=== PATIENT | female | born 1990 | race Caucasian/White ===

== ENCOUNTER 2017-09-07 16:41 | Emergency (ER) | payer OTHER ==
[2017-09-07] MEDS ORDERED: ACETAMINOPHEN TAB 500 MG TAB PO STA (18:07)
[2017-09-07 18:10] VITALS: RESP 18
--- NOTE | 2017-09-07 18:52 | ED ---
General Adult HPI - General Chief complaint: Eye Problems Stated complaint: Blurred Vision Time Seen by Provider: 09/07/17 18:00 Source: patient, RN notes reviewed Mode of arrival: ambulatory Limitations: no limitations - History of Present Illness Initial comments: Chief complaint and history of present illness this a 27-year-old female with a migrainous type headache. It started 2 hours earlier. Mild photophobia mild tingling to the right side of her face. Nausea without vomiting. Patient reports she has similar episode several days ago. Patient also has a history of anxiety. - Related Data Home Medications Medication Instructions Recorded Confirmed ALPRAZolam [Xanax] 0.5 mg PO DAILY PRN 09/07/17 09/07/17 PARoxetine HCL [Paxil] 30 mg PO DAILY 09/07/17 09/07/17 Previous Rx's Medication Instructions Recorded Ondansetron Odt [Zofran Odt] 4 mg PO Q8HR PRN #10 tab 09/07/17 Allergies Allergy/AdvReac Type Severity Reaction Status Date / Time Sulfa (Sulfonamide Allergy Rash/Hives Verified 09/07/17 18:18 Antibiotics) Review of Systems ROS Statement: Those systems with pertinent positive or pertinent negative responses have been documented in the HPI. Review of systems. Currently the headaches minimal. She reports she had mildly blurred vision and numb sensation to the right side of her face. This is associated with a mild headache. This happened also several days ago and spontaneously went away. She also reports a stress and anxiety have been problems in the past for which she takes Paxil. Patient otherwise denying any fever no stiff neck no chest pain shortness breath GI/ problems and at this time no neuro deficits. All systems were reviewed. Past medical problems significant for headache several days ago with similar type. Also anxiety. Patient denies any surgeries. Family history negative for serious medical problems, no cancers no brain aneurysms. The patient denies smoking or drinking. She does have an ALLERGY to sulfa drugs. ROS Other: All systems not noted in ROS Statement are negative. Past Medical History Past Medical History: No Reported History History of Any Multi-Drug Resistant Organisms: None Reported Past Surgical History: No Surgical Hx Reported Past Psychological History: Anxiety Smoking Status: Never smoker Past Alcohol Use History: None Reported Past Drug Use History: None Reported General Exam - General Exam Comments Initial Comments: General: The patient is awake and alert, in no distress, and does not appear acutely ill. Here because she had mild blurred vision and a mild frontal headache with mild nausea and photophobia. Vital signs show temperature 98.8 pulse 106 respiratory rate 20 pulse ox 99% room air blood pressure 135/84. Eye: Pupils are equal, round and reactive to light, extra-ocular movements are intact ; there is normal conjunctiva bilaterally. No signs of icterus. Ears, nose, mouth and throat: There are moist mucous membranes and no oral lesions. Neck: The neck is supple, there is no tenderness or JVD. Cardiovascular: There is a regular rate and rhythm. No murmur, rub or gallop is appreciated. Respiratory: Lungs are clear to auscultation, respirations are non-labored, breath sounds are equal. No wheezes, stridor, rales, or rhonchi. Gastrointestinal: Soft, non-distended, non-tender abdomen without masses or organomegaly noted. There is no rebound or guarding present. No CVA tenderness. Bowel sounds are unremarkable. Back: There is no tenderness to palpation in the midline. There is no obvious deformity. No rashes noted. Musculoskeletal: Normal ROM, no tenderness, There is no pedal edema. There is no calf tenderness or swelling. Sensation intact. Pulses equal bilaterally 2+. Neurological: CN II-XII intact, There are no obvious motor or sensory deficits. Coordination appears grossly intact. Speech is normal. No focal or lateralizing findings. Skin: Skin is warm and dry and no rashes or lesions are noted. Psychiatric: Cooperative, appropriate mood & affect, normal judgment. History of anxiety, takes Paxil. Limitations: no limitations Course Vital Signs 09/07/17 09/07/17 16:43 18:08 Temperature 98.8 F Pulse Rate 106 H 58 L Respiratory 20 18 Rate Blood Pressure 135/84 129/78 O2 Sat by Pulse 99 97 Oximetry Medical Decision Making - Medical Decision Making Medical decision making; this is a 27-year-old female who is coming emergency room with migraine type headache. Mild photophobia, mild numbness and tingling to the right side of her face which subsided after taking Tylenol here and some at home. Patient has similar episode several days ago. The patient is neurologically intact. Urine was negative for test. Patient also has a history of anxiety. Patient was given 1 g of Tylenol here in emergency room. Patient has CT of the brain which was done and reviewed by radiologist his impression is CT of the head is performed without contrast. The ventricles and sulci appear normal. There is no mass effect nor midline shift. There is no sign of intracranial hemorrhage. The calvarium is intact. Impression negative computed tomography scan of the brain. As read by Dr. Batres. Plan the patient will be given prescription for Zofran to be taken for nausea. Advised at the first sign of the beginnings of what appears to be migrainous type headaches with aura to take the Zofran plus and Excedrin. The patient's also advised follow-up with her family physician or return emergency room as needed. - Lab Data Lab Results 09/07/17 Range/Units 18:49 Urine HCG, Qual Not Detected (Not Detectd) Disposition Clinical Impression: Migraine with aura Disposition: HOME SELF-CARE Condition: Fair Instructions: Migraine Headache (ED) Additional Instructions: At the first sign of a headache take Zofran and Excedrin and try to rest in a cool quiet room. Follow-up with family physician return emergency room as needed Prescriptions: Ondansetron Odt [Zofran Odt] 4 mg PO Q8HR PRN #10 tab PRN Reason: Nausea Is patient prescribed a controlled substance at d/c from ED?: No Referrals: Aric Cleary DO [Primary Care Provider] - 1-2 days Time of Disposition: 20:26
--- NOTE | 2017-09-07 19:49 | CT ---
EXAMINATION TYPE: CT brain wo con DATE OF EXAM: 09/07/2017 COMPARISON: NONE HISTORY: Headache and blurred vision. CT DLP: 788.8 mGycm. Automated Exposure Control for Dose Reduction was Utilized. TECHNIQUE: CT scan of the head is performed without contrast. Ventricles and sulci appear normal. There is no mass effect nor midline shift. There is no sign of in tracranial hemorrhage. The calvarium is intact. IMPRESSION: Negative CT scan of the brain.
[2017-09-07 20:26] VITALS: BP 121/69; PULSE 89
[2017-09-07 20:40] VITALS: TEMP 98.4
== END 2017-09-07 20:37 | disposition home or self-care (01) ==
LOC: EC 16:41
DX: G43.109 Migraine with aura, not intractable, without status migrainosus (principal); R20.0 Anesthesia of skin; R20.2 Paresthesia of skin; F41.9 Anxiety disorder, unspecified; Z79.899 Other long term (current) drug therapy; Z88.2 Allergy status to sulfonamides
CPT/HCPCS: 70450; 81025; 99284

== ENCOUNTER → 2017-09-12 | Outpatient (CLI) | payer OTHER ==
--- NOTE | 2017-09-12 17:16 | US ---
EXAMINATION TYPE: US pelvis complete transvag DATE OF EXAM: 09/12/2017 COMPARISON: NONE CLINICAL HISTORY: R10.2 Pelvic pain. TECHNIQUE: . Transabdominal sonographic images of the pelvis were acquired. Transvaginal sonographi c images were medically necessary to better assess the following anatomy: uterus and ovaries Date of LMP: 09/10/2017 EXAM MEASUREMENTS: Uterus: 6 x 3.6 x 4.2 cm Endometrial Stripe: 0.2 cm Right Ovary: 4.0 x 1.7 x 2.0 cm Left Ovary: 3.8 x 1.4 x 2.3 cm 1. Uterus: Retroverted small nabothian cysts 0.3 x 0.4 x0.9 cm, 0.4 x 0.4 x 0.4 cm 2. Endometrium: wnl 3. Right Ovary: follicular cysts 4. Left Ovary: follicular cysts 5. Bilateral Adnexa: wnl 6. Posterior cul-de-sac: wnl IMPRESSION: Negative transabdominal and transvaginal pelvic sonogram.
[2017-09-12 17:41] LABS: HCG,Quantitative Serum <2.4 mIU/mL
== END | disposition home or self-care (01) ==
LOC: RADUSWWP 16:14 → EDUNIT# 16:20
PROVIDERS: ATTEND Obstetrics & Gynecology
DX: R10.2 Pelvic and perineal pain (principal); N91.5 Oligomenorrhea, unspecified
CPT/HCPCS: 36415; 76830; 76856; 83001; 83002; 84146; 84443; 84702

== ENCOUNTER → 2017-11-07 | Outpatient (CLI) | payer OTHER ==
--- NOTE | 2017-11-07 12:28 | EST ---
EXERCISE STRESS DATE OF SERVICE: November 07, 2017 AGE: 27 SEX: F HT: 61" WT: 170 PROTOCOL: Stress Test STAGE: 3 DURATION OF EXERCISE: 7:00 HEART RATE REST: 100 BLOOD PRESSURE REST: 117/77 MAXIMUM HEART RATE ACHIEVED: 165 MAXIMUM BLOOD PRESSURE: 182/48 85% MPHR: 165 100% MPHR: 195 METS: 8.5 INDICATIONS: Chest pain, palpitations. CLINICAL INFORMATION: STRESS DATA: Pretesting physical examination showed heart rate of 100, pressure 117/77 mmHg. Baseline EKG showed sinus mechanism. The patient exercised on the treadmill according to Win protocol for a total of 7 minutes and achieved 8.5 METS. Max heart rate was 165, which is about 85% of maximum predicted heart rate. Maximum blood pressure was 182/48 mmHg. Clinically, the patient did not have any symptoms of chest pain or chest discomfort during the testing or in the recovery. She developed some shortness of breath at peak of heart rate. The EKG did not show any significant ST or T-wave abnormalities concerning for ischemia. CONCLUSION: 1. Good exercise tolerance. 2. Normal EKG in response to exercise. 3. Essentially normal stress test for the patient. MMODL / IJN: [id number] /
== END | disposition home or self-care (01) ==
LOC: RADNMMAIN 10:32
PROVIDERS: ATTEND Family Medicine
DX: R00.2 Palpitations (principal)
CPT/HCPCS: 93017

== ENCOUNTER → 2017-11-13 | Outpatient (CLI) | payer OTHER ==
--- NOTE | 2017-11-22 11:08 | EM ---
EVENT MONITOR Patient was monitored between the November 21 and 2017. The rhythm strip reveals sinus mechanism with episode of sinus tachycardia. There was no evidence of ventricular tachycardia or significant pauses. KAIT / PATRICKN: [id number] /
== END ==
LOC: RADECHMAIN 11:51
PROVIDERS: ATTEND Family Medicine
DX: R00.0 Tachycardia, unspecified (principal)
CPT/HCPCS: 93270; 93271

== ENCOUNTER 2017-12-30 11:27 | Emergency (ER) | payer OTHER ==
[2017-12-30] MEDS ORDERED: SODIUM CHLORIDE 0.9% 1,000 ML IV STA (11:45)
--- NOTE | 2017-12-30 11:47 | ED ---
General Adult HPI - General Chief complaint: Back Pain/Injury Stated complaint: Back/stomach pain Time Seen by Provider: 12/30/17 11:36 Source: patient, RN notes reviewed Mode of arrival: ambulatory Limitations: no limitations - History of Present Illness Initial comments: Patient 27-year-old female presented to the emergency room today with a chief complaint of left-sided back pain over the last week. She states that she's had pain in the left side of the back at all ache. She states she was worried about possible urinary tract infection. She states with this patient's also had some pain up between her shoulders and some chest pain. She states that she 's also had some achiness to her neck as well. She states all the symptoms were present over the past week but they seem to be getting worse. She did go to the family doctor was started on antibiotics cover for a urinary tract infection on ciprofloxacin but states that these symptoms are not improving and everything seems to be increasing. Patient denies any other complaints currently. Patient denies any recent fever, chills, nausea or vomiting, numbness or tingling, dysuria or hematuria, constipation or diarrhea, headaches or visual changes, or any other complaints. - Related Data Home Medications Medication Instructions Recorded Confirmed ALPRAZolam [Xanax] 0.5 mg PO DAILY PRN 09/07/17 09/07/17 PARoxetine HCL [Paxil] 30 mg PO DAILY 09/07/17 09/07/17 Previous Rx's Medication Instructions Recorded Ondansetron Odt [Zofran Odt] 4 mg PO Q8HR PRN #10 tab 09/07/17 Allergies Allergy/AdvReac Type Severity Reaction Status Date / Time Sulfa (Sulfonamide Allergy Rash/Hives Verified 12/30/17 11:34 Antibiotics) Review of Systems ROS Statement: Those systems with pertinent positive or pertinent negative responses have been documented in the HPI. ROS Other: All systems not noted in ROS Statement are negative. Past Medical History Past Medical History: No Reported History History of Any Multi-Drug Resistant Organisms: None Reported Past Surgical History: No Surgical Hx Reported Past Psychological History: Anxiety, Depression Smoking Status: Never smoker Past Alcohol Use History: None Reported Past Drug Use History: None Reported General Exam - General Exam Comments Initial Comments: General: The patient is awake and alert, in no distress, and does not appear acutely ill. Eye: Pupils are equal, round and reactive to light. Extra-ocular movements are intact. No nystagmus. There is normal conjunctiva bilaterally. No signs of icterus. Ears, nose, mouth and throat: There are moist mucous membranes and no oral lesions. Neck: The neck is supple, there is no tenderness or JVD. Cardiovascular: There is a regular rate and rhythm. No murmur, rub or gallop is appreciated. Respiratory: Lungs are clear to auscultation, respirations are non-labored, breath sounds are equal. No wheezes, stridor, rales, or rhonchi. Gastrointestinal: Soft, non-distended, non-tender abdomen without masses or organomegaly noted. There is no rebound or guarding present. No CVA tenderness. Musculoskeletal: Normal ROM, no tenderness. Sensation intact. Strength 5/5. Pulses equal bilaterally 2+. Neurological: A&O x 3. CN II-XII intact, There are no obvious motor or sensory deficits. Coordination appears grossly intact. Speech is normal. Skin: Skin is warm and dry and no rashes or lesions are noted. Psychiatric: Cooperative, appropriate mood & affect, normal judgment. Limitations: no limitations Course Vital Signs 12/30/17 11:31 Temperature 98.1 F Pulse Rate 79 Respiratory 20 Rate Blood Pressure 108/67 O2 Sat by Pulse 99 Oximetry EKG Findings - EKG Comments: EKG Findings:: EKG performed at 1150: Shows normal sinus rhythm at 80 bpm. OH interval is 172. QRS 86. QT/QTc is 368/424. No acute ST changes. Medical Decision Making - Medical Decision Making Patient reexamined at this time shows no signs of distress is resting comfortably. Her labs been reviewed. Patient's urinalysis shows no sign of infection. Patient currently on antibiotics of Cipro Floxin. Patient's EKG showed a normal sinus rhythm. Chest x-rays unremarkable. Patient's is no tachycardia. Is not on any control. No recent travel. Patient's doing well. Vitals are stable will be discharged home advised follow-up the family doctor over the next 2 days. - Lab Data Result diagrams: 12/30/17 12:10 12/30/17 12:10 Lab Results 12/30/17 12/30/17 12/30/17 Range/Units 12:10 12:10 12:10 WBC 7.4 (3.8-10.6) k/uL RBC 4.38 (3.80-5.40) m/uL Hgb 13.9 (11.4-16.0) gm/dL Hct 39.3 (34.0-46.0) % MCV 89.9 (80.0-100.0) fL MCH 31.7 (25.0-35.0) pg MCHC 35.3 (31.0-37.0) g/dL RDW 12.4 (11.5-15.5) % Plt Count 288 (150-450) k/uL Neutrophils % 71 % Lymphocytes % 19 % Monocytes % 6 % Eosinophils % 2 % Basophils % 0 % Neutrophils # 5.3 (1.3-7.7) k/uL Lymphocytes # 1.4 (1.0-4.8) k/uL Monocytes # 0.5 (0-1.0) k/uL Eosinophils # 0.1 (0-0.7) k/uL Basophils # 0.0 (0-0.2) k/uL Sodium 139 (137-145) mmol/L Potassium 4.2 (3.5-5.1) mmol/L Chloride 107 (98-107) mmol/L Carbon Dioxide 22 (22-30) mmol/L Anion Gap 10 mmol/L BUN 13 (7-17) mg/dL Creatinine 0.59 (0.52-1.04) mg/dL Est GFR (CKD-EPI)AfAm >90 (>60 ml/min/1.73 sqM) Est GFR (CKD-EPI)NonAf >90 (>60 ml/min/1.73 sqM) Glucose 92 (74-99) mg/dL Calcium 9.4 (8.4-10.2) mg/dL Total Bilirubin 0.7 (0.2-1.3) mg/dL AST 25 (14-36) U/L ALT 28 (9-52) U/L Alkaline Phosphatase 89 (38-126) U/L Total Creatine Kinase 39 (30-135) U/L CK-MB (CK-2) <0.2 (0.0-2.4) ng/mL CK-MB (CK-2) Rel Index Troponin I <0.012 (0.000-0.034) ng/mL Total Protein 7.6 (6.3-8.2) g/dL Albumin 4.3 (3.5-5.0) g/dL Urine Color Urine Appearance (Clear) Urine pH (5.0-8.0) Ur Specific [place] (1.001-1.035) Urine Protein (Negative) Urine Glucose (UA) (Negative) Urine Ketones (Negative) Urine Blood (Negative) Urine Nitrite (Negative) Urine Bilirubin (Negative) Urine Urobilinogen (<2.0) mg/dL Ur Leukocyte Esterase (Negative) Urine RBC (0-5) /hpf Ur Squamous Epith Cells (0-4) /hpf Urine Bacteria (None) /hpf Urine Mucus (None) /hpf Urine HCG, Qual (Not Detectd) 12/30/17 12/30/17 Range/Units 12:10 12:10 WBC (3.8-10.6) k/uL RBC (3.80-5.40) m/uL Hgb (11.4-16.0) gm/dL Hct (34.0-46.0) % MCV (80.0-100.0) fL MCH (25.0-35.0) pg MCHC (31.0-37.0) g/dL RDW (11.5-15.5) % Plt Count (150-450) k/uL Neutrophils % % Lymphocytes % % Monocytes % % Eosinophils % % Basophils % % Neutrophils # (1.3-7.7) k/uL Lymphocytes # (1.0-4.8) k/uL Monocytes # (0-1.0) k/uL Eosinophils # (0-0.7) k/uL Basophils # (0-0.2) k/uL Sodium (137-145) mmol/L Potassium (3.5-5.1) mmol/L Chloride (98-107) mmol/L Carbon Dioxide (22-30) mmol/L Anion Gap mmol/L BUN (7-17) mg/dL Creatinine (0.52-1.04) mg/dL Est GFR (CKD-EPI)AfAm (>60 ml/min/1.73 sqM) Est GFR (CKD-EPI)NonAf (>60 ml/min/1.73 sqM) Glucose (74-99) mg/dL Calcium (8.4-10.2) mg/dL Total Bilirubin (0.2-1.3) mg/dL AST (14-36) U/L ALT (9-52) U/L Alkaline Phosphatase (38-126) U/L Total Creatine Kinase (30-135) U/L CK-MB (CK-2) (0.0-2.4) ng/mL CK-MB (CK-2) Rel Index Troponin I (0.000-0.034) ng/mL Total Protein (6.3-8.2) g/dL Albumin (3.5-5.0) g/dL Urine Color Yellow Urine Appearance Cloudy H (Clear) Urine pH 7.0 (5.0-8.0) Ur Specific [place] 1.018 (1.001-1.035) Urine Protein Trace H (Negative) Urine Glucose (UA) Negative (Negative) Urine Ketones Negative (Negative) Urine Blood Negative (Negative) Urine Nitrite Negative (Negative) Urine Bilirubin Negative (Negative) Urine Urobilinogen <2.0 (<2.0) mg/dL Ur Leukocyte Esterase Large H (Negative) Urine RBC 3 (0-5) /hpf Ur Squamous Epith Cells 42 H (0-4) /hpf Urine Bacteria Few H (None) /hpf Urine Mucus Rare H (None) /hpf Urine HCG, Qual Not Detected (Not Detectd) Disposition Clinical Impression: Flank pain Disposition: HOME SELF-CARE Condition: Good Instructions: Flank Pain (ED) Additional Instructions: Please use medication as discussed. Please follow-up with family doctor in the next 2 days of symptoms have not improved. Please return to emergency room if the symptoms increase or worsen or for any other concerns. Is patient prescribed a controlled substance at d/c from ED?: No Referrals: Aric Cleary DO [Primary Care Provider] - 1-2 days Time of Disposition: 13:48
[2017-12-30 12:24] LABS: Basophils % (A) 0 %; Eosinophils # (A) 0.1 k/uL (0-0.7); Eosinophils % (A) 2 %; HCT 39.3 % (34.0-46.0); HGB 13.9 gm/dL (11.4-16.0); Lymphocytes # (A) 1.4 k/uL (1.0-4.8); Lymphocytes % (A) 19 %; MCH 31.7 pg (25.0-35.0); MCHC 35.3 g/dL (31.0-37.0); MCV 89.9 fL (80.0-100.0); Mean Platelet Volume 6.7; Monocytes # (A) 0.5 k/uL (0-1.0); Monocytes % (A) 6 %; Neutrophils # (A) 5.3 k/uL (1.3-7.7); Neutrophils % (A) 71 %; Platelet Count 288 k/uL (150-450); RBC 4.38 m/uL (3.80-5.40); RDW 12.4 % (11.5-15.5); WBC 7.4 k/uL (3.8-10.6)
[2017-12-30 12:27] LABS: Appearance,Urine Cloudy (Clear); Bacteria,Urine Few /hpf; Bilirubin,Urine Negative (Negative); Blood,Urine Negative (Negative); Color,Urine Yellow; Glucose,Urine (UA) Negative (Negative); Ketones,Urine Negative (Negative); Leukocyte Esterase,Urine Large (Negative); Mucus,Urine Rare /hpf; Nitrite,Urine Negative (Negative); Protein,Urine Trace (Negative); RBC,Urine 3 /hpf (0-5); Specific Gravity,Urine 1.018 (1.001-1.035); Squamous Epithelial Cell,Urine 42 /hpf (0-4); Urobilinogen,Urine <2.0 mg/dL (<2.0)
[2017-12-30 12:36] LABS: ALT 28 U/L (9-52); AST 25 U/L (14-36); Albumin 4.3 g/dL (3.5-5.0); Alkaline Phosphatase 89 U/L (38-126); Anion Gap 10 mmol/L; Blood Urea Nitrogen 13 mg/dL (7-17); Calcium 9.4 mg/dL (8.4-10.2); Carbon Dioxide 22 mmol/L (22-30); Chloride 107 mmol/L (98-107); Glucose 92 mg/dL (74-99); Potassium 4.2 mmol/L (3.5-5.1); Sodium 139 mmol/L (137-145); Total Bilirubin 0.7 mg/dL (0.2-1.3); Total Protein 7.6 g/dL (6.3-8.2)
[2017-12-30 13:09] LABS: Creatine Kinase 39 U/L (30-135)
--- NOTE | 2017-12-30 13:09 | XR ---
EXAMINATION TYPE: XR KUB , 2 VIEWS DATE OF EXAM ORDERED: 12/30/2017 HISTORY: pain. COMPARISON: None. FINDINGS: The abdominal gas pattern is within normal limits. There is no evidence of obstruction or free air. There is a moderate amount of stool present on the right. No unusual calcifications are see n. IMPRESSION: 1. NO ACUTE INTRA-ABDOMINAL ABNORMALITY. 2. CORRELATE FOR CONSTIPATION.
--- NOTE | 2017-12-30 13:10 | XR ---
EXAMINATION TYPE: XR chest 2V DATE OF EXAM: 12/30/2017 HISTORY: pain. REFERENCE: NONE. FINDINGS: The lungs are clear. Pleural spaces are clear. The heart is not enlarged. IMPRESSION: NO ACTIVE INTRATHORACIC DISEASE.
[2017-12-30 13:20] LABS: Creatine Kinase MB <0.2 ng/mL (0.0-2.4); Troponin I <0.012 ng/mL (0.000-0.034)
[2017-12-30 14:00] VITALS: BP 109/63; PULSE 77; RESP 18; TEMP 98.5
== END 2017-12-30 13:55 | disposition home or self-care (01) ==
LOC: EC 11:27
DX: R10.9 Unspecified abdominal pain (principal); M54.9 Dorsalgia, unspecified; R07.9 Chest pain, unspecified; F41.9 Anxiety disorder, unspecified; F32.9 Major depressive disorder, single episode, unspecified; Z32.02 Encounter for pregnancy test, result negative; Z79.899 Other long term (current) drug therapy; Z88.2 Allergy status to sulfonamides
CPT/HCPCS: 36415; 71046; 74018; 80053; 81001; 81025; 82550; 82553; 84484; 85025; 87086; 93005; 96360; 99284

== ENCOUNTER 2018-01-17 03:10 | Emergency (ER) | payer OTHER ==
[2018-01-17 03:17] VITALS: RESP 18
--- NOTE | 2018-01-17 03:29 | ED ---
General Adult HPI - General Source: patient, RN notes reviewed Mode of arrival: wheelchair Limitations: no limitations <Felipe Campos P - Last Filed: 01/17/18 03:55> <Sammie Matos P - Last Filed: 01/17/18 04:54> - General Chief complaint: Dizziness Stated complaint: MIGRAINE,DIZZINESS Time Seen by Provider: 01/17/18 03:20 - History of Present Illness Initial comments: 27-year-old female with a past medical history of migraines and anxiety presents to the emergency department for a chief complaint of headache and dizziness 5 days. Patient states she was diagnosed with migraines a few months ago and has had a CAT scan in the past. Patient states that 5 days ago she started to experience aura such as decreased vision. Patient states this is consistent with past migraines. Patient also has blurry vision and dizziness which is consistent with past symptoms of migraines. Patient also admits to nausea but denies vomiting. However patient states this is lasting longer than her normal migraines. Patient also admits to increased anxiety lately and states this could be attributing. Patient states her boyfriend also similar symptoms and they are concerned for carbon monoxide poisoning. Patient has no other complaints at this time including shortness of breath, chest pain, abdominal pain, or fevers. (Felipe Campos) - Related Data Home Medications Medication Instructions Recorded Confirmed ALPRAZolam [Xanax] 0.5 mg PO DAILY PRN 09/07/17 01/17/18 PARoxetine HCL [Paxil] 30 mg PO DAILY 09/07/17 01/17/18 Nadolol [Corgard] 20 mg PO DAILY 01/17/18 01/17/18 Previous Rx's Medication Instructions Recorded Ondansetron Odt [Zofran Odt] 4 mg PO Q8HR PRN #10 tab 09/07/17 Allergies Allergy/AdvReac Type Severity Reaction Status Date / Time Sulfa (Sulfonamide Allergy Rash/Hives Verified 01/17/18 03:17 Antibiotics) Review of Systems ROS Other: All systems not noted in ROS Statement are negative. <Felipe Campos - Last Filed: 01/17/18 03:55> ROS Other: All systems not noted in ROS Statement are negative. <Sammie Matos P - Last Filed: 01/17/18 04:54> ROS Statement: Those systems with pertinent positive or pertinent negative responses have been documented in the HPI. Past Medical History Past Medical History: No Reported History Additional Past Medical History / Comment(s): migraines, tachycardia, History of Any Multi-Drug Resistant Organisms: None Reported Past Surgical History: No Surgical Hx Reported Past Psychological History: Anxiety, Depression Smoking Status: Never smoker Past Alcohol Use History: None Reported Past Drug Use History: None Reported <Felipe Campos P - Last Filed: 01/17/18 03:55> General Exam Limitations: no limitations General appearance: alert, in no apparent distress Head exam: Present: atraumatic, normocephalic, normal inspection Eye exam: Present: normal appearance, PERRL, EOMI. Absent: scleral icterus, conjunctival injection, nystagmus, periorbital swelling ENT exam: Present: normal exam, normal oropharynx, mucous membranes moist, TM's normal bilaterally, normal external ear exam Neck exam: Present: normal inspection, full ROM. Absent: tenderness, meningismus, lymphadenopathy Respiratory exam: Present: normal lung sounds bilaterally. Absent: respiratory distress, wheezes, rales, rhonchi, stridor Cardiovascular Exam: Present: regular rate, normal rhythm, normal heart sounds. Absent: systolic murmur, diastolic murmur, rubs, gallop, clicks Neurological exam: Present: alert, oriented X3, CN II-XII intact Psychiatric exam: Present: normal affect, normal mood <Felipe Campos P - Last Filed: 01/17/18 03:55> Vital Signs 01/17/18 03:14 Temperature 98.4 F Pulse Rate 80 Respiratory 18 Rate Blood Pressure 119/82 O2 Sat by Pulse 95 Oximetry EKG Findings - EKG Comments: EKG Findings:: Normal sinus rhythm, ventricular rate 77, [place] interval 152, no evidence of ST elevation or depression. <Felipe Campos P - Last Filed: 01/17/18 03:55> Medical Decision Making <Felipe Campos P - Last Filed: 01/17/18 03:55> - Lab Data Result diagrams: 01/17/18 03:40 01/17/18 03:40 <Sammie Matos P - Last Filed: 01/17/18 04:54> - Medical Decision Making 27-year-old female presents to the emergency department for a chief complaint of migraine 5 days. Patient also has associated dizziness, nausea, and blurry vision which is consistent with past symptoms of migraines. Symptoms were preceded by an aura of decreased vision. Patient and boyfriend are also concern for carbon monoxide as patient's boyfriend has had similar symptoms today. On exam no focal neuro deficits. Patient is well-appearing. Patient does appear upset when speaking about increasing recent anxiety and states this could be playing a role in her headache. CBC CMP and Carbon monoxide ordered. Care handed to off to Dr Matos at 0400. (Felipe Campos) She care was signed out to me by Felipe, patient presented with intermittent headache and concern for carbon monoxide exposure. Labs were unremarkable. Carboxyhemoglobin was mildly elevated with the patient is a cigarette smoker. This is not a concerning level. I reevaluated the patient who states she is feeling better at though somewhat anxious. I advised her of her normal lab findings. She reports her headache is improved with Toradol. At this time the patient is stable for discharge home. Return parameters were discussed and the patient was discharged home in stable condition. (Sammie Matos) - Lab Data Lab Results 01/17/18 01/17/18 01/17/18 Range/Units 03:40 03:40 03:40 WBC 9.2 (3.8-10.6) k/uL RBC 4.34 (3.80-5.40) m/uL Hgb 13.5 (11.4-16.0) gm/dL Hct 40.0 (34.0-46.0) % MCV 92.1 (80.0-100.0) fL MCH 31.2 (25.0-35.0) pg MCHC 33.9 (31.0-37.0) g/dL RDW 12.3 (11.5-15.5) % Plt Count 327 (150-450) k/uL Neutrophils % 86 % Lymphocytes % 10 % Monocytes % 3 % Eosinophils % 1 % Basophils % 0 % Neutrophils # 7.9 H (1.3-7.7) k/uL Lymphocytes # 0.9 L (1.0-4.8) k/uL Monocytes # 0.3 (0-1.0) k/uL Eosinophils # 0.1 (0-0.7) k/uL Basophils # 0.0 (0-0.2) k/uL Carbon Monoxide, Quant 3.0 (<10.0) % Sodium 141 (137-145) mmol/L Potassium 4.4 (3.5-5.1) mmol/L Chloride 108 H (98-107) mmol/L Carbon Dioxide 24 (22-30) mmol/L Anion Gap 9 mmol/L BUN 14 (7-17) mg/dL Creatinine 0.65 (0.52-1.04) mg/dL Est GFR (CKD-EPI)AfAm >90 (>60 ml/min/1.73 sqM) Est GFR (CKD-EPI)NonAf >90 (>60 ml/min/1.73 sqM) Glucose 164 H (74-99) mg/dL Calcium 10.1 (8.4-10.2) mg/dL Disposition <Felipe Campos P - Last Filed: 01/17/18 03:55> Is patient prescribed a controlled substance at d/c from ED?: No <Sammie Matos P - Last Filed: 01/17/18 04:54> Clinical Impression: Headache Disposition: HOME SELF-CARE Condition: Good Instructions: Dizziness (ED) Referrals: Aric Cleary DO [Primary Care Provider] - 1-2 days
[2018-01-17] MEDS ORDERED: KETOROLAC 30 MG/ML 1 ML VIAL IM STA (03:38)
[2018-01-17] MEDS ORDERED: ONDANSETRON 4 MG/2 ML VIAL IVP STA (03:38)
[2018-01-17] MEDS ORDERED: SODIUM CHLORIDE 0.9% 1,000 ML IV STA (03:39)
[2018-01-17 03:54] LABS: Basophils % (A) 0 %; Eosinophils # (A) 0.1 k/uL (0-0.7); Eosinophils % (A) 1 %; HGB 13.5 gm/dL (11.4-16.0); Lymphocytes # (A) 0.9 k/uL (1.0-4.8); Lymphocytes % (A) 10 %; MCH 31.2 pg (25.0-35.0); MCHC 33.9 g/dL (31.0-37.0); MCV 92.1 fL (80.0-100.0); Mean Platelet Volume 6.8; Monocytes # (A) 0.3 k/uL (0-1.0); Monocytes % (A) 3 %; Neutrophils # (A) 7.9 k/uL (1.3-7.7); Neutrophils % (A) 86 %; Platelet Count 327 k/uL (150-450); RBC 4.34 m/uL (3.80-5.40); RDW 12.3 % (11.5-15.5); WBC 9.2 k/uL (3.8-10.6)
[2018-01-17] MEDS ORDERED: KETOROLAC 30 MG/ML 1 ML VIAL IVP STA (03:54)
[2018-01-17 04:08] LABS: Anion Gap 9 mmol/L; Blood Urea Nitrogen 14 mg/dL (7-17); Calcium 10.1 mg/dL (8.4-10.2); Carbon Dioxide 24 mmol/L (22-30); Chloride 108 mmol/L (98-107); Glucose 164 mg/dL (74-99); Potassium 4.4 mmol/L (3.5-5.1); Sodium 141 mmol/L (137-145)
[2018-01-17 06:02] VITALS: BP 122/78; PULSE 74; TEMP 98.1
== END 2018-01-17 04:58 | disposition home or self-care (01) ==
LOC: EC 03:10
DX: G43.909 Migraine, unspecified, not intractable, without status migrainosus (principal); F41.9 Anxiety disorder, unspecified; F32.9 Major depressive disorder, single episode, unspecified; Z79.899 Other long term (current) drug therapy; Z88.2 Allergy status to sulfonamides
CPT/HCPCS: 36415; 93005; 80048; 82375; 85025; 99284; 96374; 96375; 96361; J2405; J1885

== ENCOUNTER 2020-05-17 16:48 | Emergency (ER) | payer OTHER ==
[2020-05-17 16:51] VITALS: RESP 18
[2020-05-17] MEDS ORDERED: SODIUM CHLORIDE 0.9% 1,000 ML IV STA (17:12)
[2020-05-17] MEDS ORDERED: PANTOPRAZOLE 40 MG/10 ML VIAL IVP STA (17:12)
[2020-05-17] MEDS ORDERED: ONDANSETRON 4 MG/2 ML VIAL IVP STA (17:12)
[2020-05-17] MEDS ORDERED: KETOROLAC 15 MG/ML 1 ML VIAL IVP STA (17:12)
[2020-05-17 17:28] LABS: Basophils # (A) 0.1 k/uL (0-0.2); Basophils % (A) 1 %; Eosinophils # (A) 0.2 k/uL (0-0.7); Eosinophils % (A) 2 %; HCT 44.9 % (34.0-46.0); HGB 15.2 gm/dL (11.4-16.0); Lymphocytes # (A) 2.2 k/uL (1.0-4.8); Lymphocytes % (A) 22 %; MCH 31.3 pg (25.0-35.0); MCHC 33.9 g/dL (31.0-37.0); MCV 92.4 fL (80.0-100.0); Mean Platelet Volume 7.2; Monocytes # (A) 0.5 k/uL (0-1.0); Monocytes % (A) 5 %; Neutrophils # (A) 6.9 k/uL (1.3-7.7); Neutrophils % (A) 70 %; Platelet Count 333 k/uL (150-450); RBC 4.86 m/uL (3.80-5.40); RDW 12.2 % (11.5-15.5); WBC 9.9 k/uL (3.8-10.6)
[2020-05-17 17:30] LABS: Appearance,Urine Clear (Clear); Bilirubin,Urine Negative (Negative); Blood,Urine Negative (Negative); Color,Urine Yellow; Glucose,Urine (UA) Negative (Negative); Ketones,Urine Negative (Negative); Leukocyte Esterase,Urine Trace (Negative); Mucus,Urine Occasional /hpf; Nitrite,Urine Negative (Negative); PH, Urine 5.5 (5.0-8.0); Protein,Urine Negative (Negative); RBC,Urine 1 /hpf (0-5); Specific Gravity,Urine 1.026 (1.001-1.035); Squamous Epithelial Cell,Urine 5 /hpf (0-4); Urobilinogen,Urine <2.0 mg/dL (<2.0); WBC,Urine 2 /hpf (0-5)
[2020-05-17 17:38] LABS: ALT 19 U/L (4-34); AST 21 U/L (14-36); African American GFR (CKD) >90 (>60 ml/min/1.73 sqM); Albumin 4.6 g/dL (3.5-5.0); Alkaline Phosphatase 102 U/L (38-126); Amylase 57 U/L (30-110); Anion Gap 11 mmol/L; Blood Urea Nitrogen 12 mg/dL (7-17); Calcium 9.7 mg/dL (8.4-10.2); Carbon Dioxide 24 mmol/L (22-30); Chloride 105 mmol/L (98-107); Glucose 102 mg/dL (74-99); Lipase 88 U/L (23-300); Non-African American GFR(CKD) >90 (>60 ml/min/1.73 sqM); Potassium 4.1 mmol/L (3.5-5.1); Sodium 140 mmol/L (137-145); Total Bilirubin 0.4 mg/dL (0.2-1.3); Total Protein 8.1 g/dL (6.3-8.2)
--- NOTE | 2020-05-17 18:14 | ED ---
Abdominal Pain HPI - General Chief Complaint: Abdominal Pain Stated Complaint: abd pain Time Seen by Provider: 05/17/20 16:54 Source: patient, RN notes reviewed, old records reviewed Mode of arrival: ambulatory Limitations: no limitations - History of Present Illness Initial Comments: This patient's a 21-year-old female who presents emergency today with months of epigastric and sub-diaphragmatic abdominal pain. She complains of some nausea and burning sensation related to pain. She does report strong family history of gallbladder problems. Patient reports she has noticed maybe a foul-smelling odor smell to her urine. She denies specific lower abdominal pain. She denies any fevers or chills. - Related Data Home Medications Medication Instructions Recorded Confirmed ALPRAZolam [Xanax] 0.5 mg PO DAILY PRN 09/07/17 01/17/18 PARoxetine HCL [Paxil] 30 mg PO DAILY 09/07/17 01/17/18 nadoloL [Corgard] 20 mg PO DAILY 01/17/18 01/17/18 Previous Rx's Medication Instructions Recorded Ondansetron Odt [Zofran Odt] 4 mg PO Q8HR PRN #10 tab 09/07/17 Ondansetron Odt [Zofran Odt] 4 mg PO Q8HR PRN #12 tab 05/17/20 Pantoprazole [Protonix] 40 mg PO DAILY #20 tablet. 05/17/20 Allergies Allergy/AdvReac Type Severity Reaction Status Date / Time Sulfa (Sulfonamide Allergy Rash/Hives Verified 05/17/20 16:51 Antibiotics) Review of Systems ROS Statement: Those systems with pertinent positive or pertinent negative responses have been documented in the HPI. ROS Other: All systems not noted in ROS Statement are negative. Past Medical History Past Medical History: No Reported History Additional Past Medical History / Comment(s): migraines, tachycardia, History of Any Multi-Drug Resistant Organisms: None Reported Past Surgical History: No Surgical Hx Reported Past Psychological History: Anxiety, Depression Smoking Status: Never smoker Past Alcohol Use History: None Reported Past Drug Use History: None Reported General Exam - General Exam Comments Initial Comments: 21-year-old female. Alert and oriented. No distress. Limitations: no limitations General appearance: alert, in no apparent distress Head exam: Present: atraumatic, normocephalic, normal inspection Eye exam: Present: normal appearance, PERRL, EOMI. Absent: scleral icterus, conjunctival injection, periorbital swelling ENT exam: Present: normal exam, mucous membranes moist Neck exam: Present: normal inspection. Absent: tenderness, meningismus, lymphadenopathy Respiratory exam: Present: normal lung sounds bilaterally. Absent: respiratory distress, wheezes, rales, rhonchi, stridor Cardiovascular Exam: Present: regular rate, normal rhythm, normal heart sounds. Absent: systolic murmur, diastolic murmur, rubs, gallop, clicks GI/Abdominal exam: Present: soft, tenderness (Epigastric tenderness ), normal bowel sounds. Absent: distended, guarding, rebound, rigid Extremities exam: Present: normal inspection, full ROM, normal capillary refill. Absent: tenderness, pedal edema, joint swelling, calf tenderness Back exam: Present: normal inspection Neurological exam: Present: alert, oriented X3, CN II-XII intact Psychiatric exam: Present: normal affect, normal mood Skin exam: Present: warm, dry, intact, normal color. Absent: rash Course Vital Signs 05/17/20 05/17/20 16:49 17:55 Temperature 99.7 F H 99.7 F H Pulse Rate 122 H 108 H Respiratory 18 18 Rate Blood Pressure 131/78 125/86 O2 Sat by Pulse 97 98 Oximetry Medical Decision Making - Medical Decision Making 21-year-old female presents with months of abdominal pain. She went pain in the epigastric area as well as a burning sensation. At this time Patient was given 3 fluids and nausea medication per tonic's. Due to her tenderness in epigastric and right and left upper quadrant she did have an ultrasound completed shows a slightly contracted gallbladder. Patient lab work was reviewed and unremarkable including negative UA for infection or . I discussed at this time to treat the Patient for gastritis and discussed the possibility. Biliary colic. I advised her to follow up with her PCP and surgeon she may require an EGD or possible HIDA scan. - Lab Data Result diagrams: 05/17/20 17:05/17/20 17: Lab Results 05/17/20 05/17/20 05/17/20 Range/Units 17:21 17:21 17: WBC 9.9 (3.8-10.6) k/uL RBC 4.86 (3.80-5.40) m/uL Hgb 15.2 (11.4-16.0) gm/dL Hct 44.9 (34.0-46.0) % MCV 92.4 (80.0-100.0) fL MCH 31.3 (25.0-35.0) pg MCHC 33.9 (31.0-37.0) g/dL RDW 12.2 (11.5-15.5) % Plt Count 333 (150-450) k/uL MPV 7.2 Neutrophils % 70 % Lymphocytes % 22 % Monocytes % 5 % Eosinophils % 2 % Basophils % 1 % Neutrophils # 6.9 (1.3-7.7) k/uL Lymphocytes # 2.2 (1.0-4.8) k/uL Monocytes # 0.5 (0-1.0) k/uL Eosinophils # 0.2 (0-0.7) k/uL Basophils # 0.1 (0-0.2) k/uL Sodium 140 (137-145) mmol/L Potassium 4.1 (3.5-5.1) mmol/L Chloride 105 (98-107) mmol/L Carbon Dioxide 24 (22-30) mmol/L Anion Gap 11 mmol/L BUN 12 (7-17) mg/dL Creatinine 0.69 (0.52-1.04) mg/dL Est GFR (CKD-EPI)AfAm >90 (>60 ml/min/1.73 sqM) Est GFR (CKD-EPI)NonAf >90 (>60 ml/min/1.73 sqM) Glucose 102 H (74-99) mg/dL Calcium 9.7 (8.4-10.2) mg/dL Total Bilirubin 0.4 (0.2-1.3) mg/dL AST 21 (14-36) U/L ALT 19 (4-34) U/L Alkaline Phosphatase 102 (38-126) U/L Total Protein 8.1 (6.3-8.2) g/dL Albumin 4.6 (3.5-5.0) g/dL Amylase 57 (30-110) U/L Lipase 88 (23-300) U/L Urine Color Yellow Urine Appearance Clear (Clear) Urine pH 5.5 (5.0-8.0) Ur Specific [place] 1.026 (1.001-1.035) Urine Protein Negative (Negative) Urine Glucose (UA) Negative (Negative) Urine Ketones Negative (Negative) Urine Blood Negative (Negative) Urine Nitrite Negative (Negative) Urine Bilirubin Negative (Negative) Urine Urobilinogen <2.0 (<2.0) mg/dL Ur Leukocyte Esterase Trace H (Negative) Urine RBC 1 (0-5) /hpf Urine WBC 2 (0-5) /hpf Ur Squamous Epith Cells 5 H (0-4) /hpf Urine Mucus Occasional H (None) /hpf Urine HCG, Qual (Not Detectd) 05/17/20 Range/Units 17:21 WBC (3.8-10.6) k/uL RBC (3.80-5.40) m/uL Hgb (11.4-16.0) gm/dL Hct (34.0-46.0) % MCV (80.0-100.0) fL MCH (25.0-35.0) pg MCHC (31.0-37.0) g/dL RDW (11.5-15.5) % Plt Count (150-450) k/uL MPV Neutrophils % % Lymphocytes % % Monocytes % % Eosinophils % % Basophils % % Neutrophils # (1.3-7.7) k/uL Lymphocytes # (1.0-4.8) k/uL Monocytes # (0-1.0) k/uL Eosinophils # (0-0.7) k/uL Basophils # (0-0.2) k/uL Sodium (137-145) mmol/L Potassium (3.5-5.1) mmol/L Chloride (98-107) mmol/L Carbon Dioxide (22-30) mmol/L Anion Gap mmol/L BUN (7-17) mg/dL Creatinine (0.52-1.04) mg/dL Est GFR (CKD-EPI)AfAm (>60 ml/min/1.73 sqM) Est GFR (CKD-EPI)NonAf (>60 ml/min/1.73 sqM) Glucose (74-99) mg/dL Calcium (8.4-10.2) mg/dL Total Bilirubin (0.2-1.3) mg/dL AST (14-36) U/L ALT (4-34) U/L Alkaline Phosphatase (38-126) U/L Total Protein (6.3-8.2) g/dL Albumin (3.5-5.0) g/dL Amylase (30-110) U/L Lipase (23-300) U/L Urine Color Urine Appearance (Clear) Urine pH (5.0-8.0) Ur Specific [place] (1.001-1.035) Urine Protein (Negative) Urine Glucose (UA) (Negative) Urine Ketones (Negative) Urine Blood (Negative) Urine Nitrite (Negative) Urine Bilirubin (Negative) Urine Urobilinogen (<2.0) mg/dL Ur Leukocyte Esterase (Negative) Urine RBC (0-5) /hpf Urine WBC (0-5) /hpf Ur Squamous Epith Cells (0-4) /hpf Urine Mucus (None) /hpf Urine HCG, Qual Not Detected (Not Detectd) - Radiology Data Radiology results: report reviewed Slightly contracted gallbladder. No gallstones or dilated ducts. No free fluid. Disposition Clinical Impression: Gastritis, Gallbladder contraction Disposition: HOME SELF-CARE Condition: Good Instructions (If sedation given, give patient instructions): Gastritis (ED), Biliary Colic (ED) Additional Instructions: Patient is advised to take the medication as prescribed and have a bland low fat diet. Advised follow-up with the GI specialist her general surgeon for possible HIDA scan or EGD. Recommended taking her Protonix as prescribed. Prescriptions: Pantoprazole [Protonix] 40 mg PO DAILY #20 tablet. Ondansetron Odt [Zofran Odt] 4 mg PO Q8HR PRN #12 tab PRN Reason: Nausea Is patient prescribed a controlled substance at d/c from ED?: No Referrals: Aric Cleary DO [Primary Care Provider] - 1-2 days Time of Disposition: 18:25
--- NOTE | 2020-05-17 18:16 | US ---
EXAMINATION TYPE: US gallbladder DATE OF EXAM: 05/17/2020 COMPARISON: NONE CLINICAL HISTORY: RUQ pain. Intermittent abdomen pain and nausea x couple months EXAM MEASUREMENTS: Liver Length: 14.4 cm Gallbladder Wall: 0.2 cm CBD: 0.4 cm Right Kidney: 10.3 x 5.1 x 4.2 cm Difficult and limited study due to patient body habitus Pancreas: obscured by overlying midline bowel gas Liver: mildly heterogeneous Gallbladder: wnl Evidence for sonographic Ledezma's sign: no CBD: visualized portions wnl, limited by overlying bowel gas Right Kidney: wnl IMPRESSION: Slightly contracted gallbladder. No gallstones or dilated ducts. No free fluid.
[2020-05-17 18:59] VITALS: BP 138/88; PULSE 106; TEMP 99.1
== END 2020-05-17 18:59 | disposition home or self-care (01) ==
LOC: EC 16:48
DX: K29.70 Gastritis, unspecified, without bleeding (principal); K82.0 Obstruction of gallbladder; F41.9 Anxiety disorder, unspecified; F32.9 Major depressive disorder, single episode, unspecified; Z79.899 Other long term (current) drug therapy; Z88.2 Allergy status to sulfonamides
CPT/HCPCS: 36415; 80053; 82150; 83690; 85025; 81001; 81025; 76705; 99284; 96374; 96375 ×2; 96361; J2405; J1885; C9113

== ENCOUNTER 2020-09-26 | Emergency (ER) | payer OTHER | END 2020-09-26 21:57 | disposition home or self-care (01) | CPT/HCPCS: 36415; 80053; 83605; 83690; 85025; 81001; 81025; 76705; 99284; 96374; 96375 ×2; 96361; J2405; J2270 ==

== ENCOUNTER 2021-02-04 12:32 | Emergency (ER) | payer OTHER ==
[2021-02-04 13:29] VITALS: BP 132/88; PULSE 97; RESP 18; TEMP 99.2
[2021-02-04 13:44] LABS: Basophils % (A) 0 %; Eosinophils # (A) 0.1 k/uL (0-0.7); Eosinophils % (A) 1 %; HCT 44.1 % (34.0-46.0); HGB 15.1 gm/dL (11.4-16.0); Lymphocytes # (A) 1.6 k/uL (1.0-4.8); Lymphocytes % (A) 17 %; MCH 31.5 pg (25.0-35.0); MCHC 34.3 g/dL (31.0-37.0); MCV 91.8 fL (80.0-100.0); Mean Platelet Volume 7.2; Monocytes # (A) 0.3 k/uL (0-1.0); Monocytes % (A) 3 %; Neutrophils # (A) 7.6 k/uL (1.3-7.7); Neutrophils % (A) 78 %; Platelet Count 358 k/uL (150-450); RDW 12.2 % (11.5-15.5); WBC 9.8 k/uL (3.8-10.6)
[2021-02-04 14:03] LABS: ALT 17 U/L (4-34); AST 20 U/L (14-36); African American GFR (CKD) >90 (>60 ml/min/1.73 sqM); Albumin 4.4 g/dL (3.5-5.0); Alkaline Phosphatase 104 U/L (38-126); Amylase 63 U/L (30-110); Anion Gap 10 mmol/L; Appearance,Urine Cloudy (Clear); Bacteria,Urine Occasional /hpf; Bilirubin,Urine Negative (Negative); Blood Urea Nitrogen 11 mg/dL (7-17); Blood,Urine Negative (Negative); Calcium 10.3 mg/dL (8.4-10.2); Carbon Dioxide 21 mmol/L (22-30); Chloride 108 mmol/L (98-107); Color,Urine Light Yellow; Glucose 100 mg/dL (74-99); Glucose,Urine (UA) Negative (Negative); Ketones,Urine Negative (Negative); Leukocyte Esterase,Urine Large (Negative); Lipase 63 U/L (23-300); Mucus,Urine Rare /hpf; Nitrite,Urine Negative (Negative); Non-African American GFR(CKD) >90 (>60 ml/min/1.73 sqM); Potassium 4.1 mmol/L (3.5-5.1); Protein,Urine Negative (Negative); RBC,Urine 3 /hpf (0-5); Sodium 139 mmol/L (137-145); Specific Gravity,Urine 1.007 (1.001-1.035); Squamous Epithelial Cell,Urine 7 /hpf (0-4); Total Bilirubin 0.5 mg/dL (0.2-1.3); Total Protein 7.7 g/dL (6.3-8.2); Urobilinogen,Urine <2.0 mg/dL (<2.0); WBC,Urine 19 /hpf (0-5)
[2021-02-04] MEDS ORDERED: MAG HYDROX/AL HYDROX/SIMETH 30 ML, HYOSCYAMINE ELIXIR 10 ML, LIDOCAINE VISCOUS 2% 10 ML PO STA ×3 (15:58)
--- NOTE | 2021-02-04 16:06 | ED ---
General Adult HPI - General Chief complaint: Abdominal Pain Stated complaint: Abd Pain Time Seen by Provider: 02/04/21 15:42 Source: patient Mode of arrival: ambulatory Limitations: no limitations - History of Present Illness Initial comments: 30-year-old female presents to the emergency Department with complaints of left upper quadrant abdominal pain, onset 5-7 days prior to arrival. Patient states this pain is intermittent and describes it as gas discomfort. Also reports pain is worsened with activity and radiates to the lower abdomen and around to the back occasionally. Also accompanied by nausea at times, is able to tolerate oral intake without difficulty. Patient states she has had a change in her stool pattern including an increased number of soft bowel movements. States she has had previous episodes of this discomfort in which no cause was determined. Patient denies fever, chills, headache, chest pain, shortness of breath, const ipation, diarrhea, dysuria, or hematuria. - Related Data Home Medications Medication Instructions Recorded Confirmed ALPRAZolam [Xanax] 0.5 mg PO DAILY PRN 09/07/17 01/17/18 PARoxetine HCL [Paxil] 30 mg PO DAILY 09/07/17 01/17/18 nadoloL [Corgard] 20 mg PO DAILY 01/17/18 01/17/18 Previous Rx's Medication Instructions Recorded Ondansetron Odt [Zofran Odt] 4 mg PO Q8HR PRN #10 tab 09/07/17 Ondansetron Odt [Zofran Odt] 4 mg PO Q8HR PRN #12 tab 05/17/20 Pantoprazole [Protonix] 40 mg PO DAILY #20 tablet. 05/17/20 Omeprazole [PriLOSEC] 20 mg PO AC-BID #60 cap 09/26/20 Allergies Allergy/AdvReac Type Severity Reaction Status Date / Time Sulfa (Sulfonamide Allergy Rash/Hives Verified 02/04/21 13:26 Antibiotics) Review of Systems ROS Statement: Those systems with pertinent positive or pertinent negative responses have been documented in the HPI. ROS Other: All systems not noted in ROS Statement are negative. Past Medical History Past Medical History: No Reported History Additional Past Medical History / Comment(s): migraines, tachycardia, History of Any Multi-Drug Resistant Organisms: None Reported Past Surgical History: No Surgical Hx Reported Past Psychological History: Anxiety, Depression Smoking Status: Never smoker Past Alcohol Use History: None Reported Past Drug Use History: None Reported General Exam Limitations: no limitations (Well-developed, well-nourished female in no acute distress. Initial temperature 99.2, 18, blood pressure 132/88, pulse ox 96% on room air.) General appearance: alert, in no apparent distress ENT exam: Present: normal exam, normal oropharynx, mucous membranes moist Respiratory exam: Present: normal lung sounds bilaterally. Absent: respiratory distress, wheezes, rales, rhonchi, stridor Cardiovascular Exam: Present: regular rate, normal rhythm, normal heart sounds. Absent: systolic murmur, diastolic murmur, rubs, gallop, clicks GI/Abdominal exam: Present: soft, tenderness (Tenderness upon palpation of the epigastrium and left upper quadrant), normal bowel sounds. Absent: distended, guarding, rebound, rigid Neurological exam: Present: alert, oriented X3, CN II-XII intact Psychiatric exam: Present: normal affect, normal mood Skin exam: Present: warm, dry, intact, normal color. Absent: rash Course Vital Signs 02/04/21 13:27 Temperature 99.2 F Pulse Rate 97 Respiratory 18 Rate Blood Pressure 132/88 O2 Sat by Pulse 96 Oximetry Medical Decision Making - Medical Decision Making 30-year-old female was evaluated for complaints of left upper quadrant abdominal pain. Upon exam, patient is well-appearing with no nausea or vomiting. No significant abnormal physical exam findings noted. Patient is afebrile, able to tolerate oral intake, and denies any urinary discomfort or symptoms. Patient was given a GI cocktail with no change. X-ray of the abdomen was obtained showing nonobstructive gas pattern. Results were reviewed with patient. Discussed bowel habits and dietary intake. Encouraged to increase intake of fluids. This patient's case was reviewed with my attending Dr. Orellana. Patient will be discharged home and instructed to follow up with primary care provider in the next 1-2 days. Return parameters were discussed in detail. Patient verbalizes understanding and agrees with this plan. - Lab Data Result diagrams: 02/04/21 13:30 02/04/21 13:30 Lab Results 02/04/21 02/04/21 02/04/21 Range/Units 13:30 13:30 13:30 WBC 9.8 (3.8-10.6) k/uL RBC 4.80 (3.80-5.40) m/uL Hgb 15.1 (11.4-16.0) gm/dL Hct 44.1 (34.0-46.0) % MCV 91.8 (80.0-100.0) fL MCH 31.5 (25.0-35.0) pg MCHC 34.3 (31.0-37.0) g/dL RDW 12.2 (11.5-15.5) % Plt Count 358 (150-450) k/uL MPV 7.2 Neutrophils % 78 % Lymphocytes % 17 % Monocytes % 3 % Eosinophils % 1 % Basophils % 0 % Neutrophils # 7.6 (1.3-7.7) k/uL Lymphocytes # 1.6 (1.0-4.8) k/uL Monocytes # 0.3 (0-1.0) k/uL Eosinophils # 0.1 (0-0.7) k/uL Basophils # 0.0 (0-0.2) k/uL Sodium 139 (137-145) mmol/L Potassium 4.1 (3.5-5.1) mmol/L Chloride 108 H (98-107) mmol/L Carbon Dioxide 21 L (22-30) mmol/L Anion Gap 10 mmol/L BUN 11 (7-17) mg/dL Creatinine 0.65 (0.52-1.04) mg/dL Est GFR (CKD-EPI)AfAm >90 (>60 ml/min/1.73 sqM) Est GFR (CKD-EPI)NonAf >90 (>60 ml/min/1.73 sqM) Glucose 100 H (74-99) mg/dL Plasma Lactic Acid [place] (0.7-2.0) mmol/L Calcium 10.3 H (8.4-10.2) mg/dL Total Bilirubin 0.5 (0.2-1.3) mg/dL AST 20 (14-36) U/L ALT 17 (4-34) U/L Alkaline Phosphatase 104 (38-126) U/L Total Protein 7.7 (6.3-8.2) g/dL Albumin 4.4 (3.5-5.0) g/dL Amylase 63 (30-110) U/L Lipase 63 (23-300) U/L Urine Color Light Yellow Urine Appearance Cloudy H (Clear) Urine pH 5.0 (5.0-8.0) Ur Specific [place] 1.007 (1.001-1.035) Urine Protein Negative (Negative) Urine Glucose (UA) Negative (Negative) Urine Ketones Negative (Negative) Urine Blood Negative (Negative) Urine Nitrite Negative (Negative) Urine Bilirubin Negative (Negative) Urine Urobilinogen <2.0 (<2.0) mg/dL Ur Leukocyte Esterase Large H (Negative) Urine RBC 3 (0-5) /hpf Urine WBC 19 H (0-5) /hpf Ur Squamous Epith Cells 7 H (0-4) /hpf Urine Bacteria Occasional H (None) /hpf Urine Mucus Rare H (None) /hpf 02/04/21 Range/Units 13:30 WBC (3.8-10.6) k/uL RBC (3.80-5.40) m/uL Hgb (11.4-16.0) gm/dL Hct (34.0-46.0) % MCV (80.0-100.0) fL MCH (25.0-35.0) pg MCHC (31.0-37.0) g/dL RDW (11.5-15.5) % Plt Count (150-450) k/uL MPV Neutrophils % % Lymphocytes % % Monocytes % % Eosinophils % % Basophils % % Neutrophils # (1.3-7.7) k/uL Lymphocytes # (1.0-4.8) k/uL Monocytes # (0-1.0) k/uL Eosinophils # (0-0.7) k/uL Basophils # (0-0.2) k/uL Sodium (137-145) mmol/L Potassium (3.5-5.1) mmol/L Chloride (98-107) mmol/L Carbon Dioxide (22-30) mmol/L Anion Gap mmol/L BUN (7-17) mg/dL Creatinine (0.52-1.04) mg/dL Est GFR (CKD-EPI)AfAm (>60 ml/min/1.73 sqM) Est GFR (CKD-EPI)NonAf (>60 ml/min/1.73 sqM) Glucose (74-99) mg/dL Plasma Lactic Acid [place] 0.7 (0.7-2.0) mmol/L Calcium (8.4-10.2) mg/dL Total Bilirubin (0.2-1.3) mg/dL AST (14-36) U/L ALT (4-34) U/L Alkaline Phosphatase (38-126) U/L Total Protein (6.3-8.2) g/dL Albumin (3.5-5.0) g/dL Amylase (30-110) U/L Lipase (23-300) U/L Urine Color Urine Appearance (Clear) Urine pH (5.0-8.0) Ur Specific [place] (1.001-1.035) Urine Protein (Negative) Urine Glucose (UA) (Negative) Urine Ketones (Negative) Urine Blood (Negative) Urine Nitrite (Negative) Urine Bilirubin (Negative) Urine Urobilinogen (<2.0) mg/dL Ur Leukocyte Esterase (Negative) Urine RBC (0-5) /hpf Urine WBC (0-5) /hpf Ur Squamous Epith Cells (0-4) /hpf Urine Bacteria (None) /hpf Urine Mucus (None) /hpf - Radiology Data Radiology results: report reviewed, image reviewed X-ray of the abdomen was obtained. Report was reviewed in its entirety. Impression per Dr. Rudolph is overall nonspecific; strongly favor nonobstructive bowel gas pattern Disposition Clinical Impression: Gas pain, Abdominal pain Disposition: HOME SELF-CARE Condition: Stable Instructions (If sedation given, give patient instructions): Gas and Bloating (ED), Abdominal Pain (ED) Additional Instructions: Increase fluids. Follow-up with your primary care provider for a recheck in the next 1-2 days. Return to the emergency department with any new, worsening, or concerning symptoms. Is patient prescribed a controlled substance at d/c from ED?: No Referrals: Aric Cleary DO [Primary Care Provider] - 1-2 days Time of Disposition: 17:10
--- NOTE | 2021-02-04 16:41 | XR ---
EXAMINATION TYPE: XR KUB DATE OF EXAM: 02/04/2021 4:34 PM CLINICAL HISTORY: Left upper quadrant pain. TECHNIQUE: Two supine KUB images of the abdomen are obtained. COMPARISON: Abdominal x-ray December 30, 2017. FINDINGS: Gas seen in nondistended stomach. Some paucity of small bowel gas. Gas and fecal material s een in nondistended colon. There is no visceromegaly or abnormal calcification appreciated. The lung bases are clear and the osseous structures are intact. IMPRESSION: Overall nonspecific strongly favor nonobstructive bowel gas pattern.
== END 2021-02-04 17:12 | disposition home or self-care (01) ==
LOC: EC 12:32
DX: R14.1 Gas pain (principal); F41.9 Anxiety disorder, unspecified; F32.9 Major depressive disorder, single episode, unspecified; Z88.2 Allergy status to sulfonamides
CPT/HCPCS: 36415; 74018; 80053; 81001; 82150; 83605; 83690; 85025; 87086; 99284

== ENCOUNTER → 2021-09-07 | Outpatient (CLI) | payer OTHER ==
[2021-09-07 15:41] LABS: C Reactive Protein 0.8 mg/dL (0.00-0.80)
[2021-09-07 15:58] LABS: HCG,Quantitative Serum 0.3 (0.0-6.0)
[2021-09-09 11:59] LABS: Calprotectin, Stool <27.1 mcg/g (<50)
== END | disposition home or self-care (01) ==
LOC: LABWHC1 10:10
PROVIDERS: ATTEND Nurse Practitioner Family
DX: Z30.40 Encounter for surveillance of contraceptives, unspecified (principal); K52.9 Noninfective gastroenteritis and colitis, unspecified
CPT/HCPCS: 36415; 82784; 83516; 83630; 83993; 84702; 86140; 87338

== ENCOUNTER → 2022-09-16 | Outpatient (CLI) | payer OTHER ==
--- NOTE | 2022-09-16 10:54 | US ---
EXAMINATION TYPE: US gallbladder DATE OF EXAM: 09/16/2022 COMPARISON: NONE CLINICAL INDICATION: Female, 32 years old with history of R10.9 UNSPECIFIED ABDOMINAL PAIN; epigastri c pain x over 1 year, more consistent now over the last 6 months TECHNIQUE: Multiple sonographic images of the right upper quadrant are obtained. FINDINGS: EXAM MEASUREMENTS: Liver Length: 14.7 cm Gallbladder Wall: 0.17 cm CBD: 0.21 cm Right Kidney: 10.7x5.7x4.6 cm OFFICE SECRETARY NOTES: Pancreas: Tail obscured by overlying bowel gas Liver: wnl Gallbladder: one 1.1cm echogenic shadowing area exhibiting twinkle artifact seen near neck. Dependen t Debris seen against posterior wall. Several echogenic areas with comet tail artifact noted within a nterior wall Evidence for sonographic Ledezma's sign: No CBD: wnl Right Kidney: No hydronephrosis or masses seen Exam difficult due to patient body habitus and bowel gas IMPRESSION: 1. Cholelithiasis. Underlying polyps are difficult to exclude.
== END | disposition home or self-care (01) ==
LOC: RADUSWWP 09:36
PROVIDERS: ATTEND Family Medicine
DX: K80.20 Calculus of gallbladder without cholecystitis without obstruction (principal); R10.13 Epigastric pain
CPT/HCPCS: 76705

== ENCOUNTER 2022-10-03 16:31 | Emergency (ER) | payer OTHER ==
[2022-10-03 16:40] VITALS: TEMP 98.4
--- NOTE | 2022-10-03 18:58 | ED ---
Abdominal Pain HPI - General Source: patient Mode of arrival: ambulatory Limitations: no limitations <KlaudiaKody - Last Filed: 10/03/22 18:58> - General Source: patient, RN notes reviewed, old records reviewed <Vinh Barone - Last Filed: 10/04/22 06:13> - General Chief Complaint: Abdominal Pain Stated Complaint: abd/back pain - History of Present Illness Initial Comments: 21-year-old female presenting to the ED with a chief complaint of abdominal pain. States ongoing daily for the past few months however worsening over the past couple days (Kody Rudolph) Patient is a 32-year-old female who presents emergency Department complaining of right upper quadrant abdominal pain. Has a known history of gallstones and has intermittent abdominal pain from these. Is also having some mild nausea. This current attack is been ongoing on and off for the last 3 days. States it happens usually every few months but seems to be a little bit more frequently lately. Denies fevers. Denies chest pain or shortness of breath. Was originally seen as a quick note and had full workup. I evaluated the patient when she is placed in [facility]. (Vinh Barone) - Related Data Home Medications Medication Instructions Recorded Confirmed ALPRAZolam [Xanax] 0.5 mg PO DAILY PRN 09/07/17 01/17/18 PARoxetine HCL [Paxil] 30 mg PO DAILY 09/07/17 01/17/18 nadoloL [Corgard] 20 mg PO DAILY 01/17/18 01/17/18 Previous Rx's Medication Instructions Recorded Ondansetron Odt [Zofran Odt] 4 mg PO Q8HR PRN #10 tab 09/07/17 Ondansetron Odt [Zofran Odt] 4 mg PO Q8HR PRN #12 tab 05/17/20 Pantoprazole [Protonix] 40 mg PO DAILY #20 tablet. 05/17/20 Omeprazole [PriLOSEC] 20 mg PO AC-BID #60 cap 09/26/20 Famotidine [Pepcid] 20 mg PO DAILY 14 Days #14 tablet 10/03/22 Ondansetron Odt [Zofran Odt] 4 mg PO Q8HR PRN 3 Days #9 tab 10/03/22 Allergies Allergy/AdvReac Type Severity Reaction Status Date / Time Sulfa (Sulfonamide Allergy Rash/Hives Verified 10/03/22 16:39 Antibiotics) Review of Systems ROS Other: All systems not noted in ROS Statement are negative. <KlaudiaKody - Last Filed: 10/03/22 18:58> ROS Other: All systems not noted in ROS Statement are negative. <Vinh Barone - Last Filed: 10/04/22 06:13> ROS Statement: Those systems with pertinent positive or pertinent negative responses have been documented in the HPI. Review of Systems: CONST: Denies fever EYES: Denies blurry vision ENT: Denies nasal congestion C/V: Denies Chest pain RESP: Denies shortness of breath GI: Endorses abdominal pain : Denies dysuria SKIN: Denies rash. MSK: Denies joint pain. NEURO: Denies headache (Vinh Barone) Past Medical History Past Medical History: No Reported History Additional Past Medical History / Comment(s): migraines, tachycardia, History of Any Multi-Drug Resistant Organisms: None Reported Past Surgical History: No Surgical Hx Reported Past Psychological History: Anxiety, Depression Smoking Status: Never smoker Past Alcohol Use History: None Reported Past Drug Use History: None Reported <KlaudiaKody - Last Filed: 10/03/22 18:58> General Exam Limitations: no limitations General appearance: alert, in no apparent distress Respiratory exam: Present: normal lung sounds bilaterally Cardiovascular Exam: Present: regular rate, normal rhythm GI/Abdominal exam: Present: soft, tenderness (Epigastric tenderness palpation) Neurological exam: Present: alert, oriented X3 Skin exam: Present: warm, dry <KlaudiaKody - Last Filed: 10/03/22 18:58> <Vinh Barone - Last Filed: 10/04/22 06:13> - General Exam Comments Initial Comments: General: Appears in no acute distress. HEAD: Normal with no signs of head trauma. EYES: PERRLA, EOMI, conjunctiva normal, no discharge. ENT: Hearing grossly intact, normal oropharynx. RESPIRATORY: Clear breath sounds bilaterally. No wheezes, rales, or rhonchi. C/V: Regular rate and rhythm. S1 and S2 auscultated, no edema, peripheral pulses 2+ and intact throughout ABD: Abd is soft, minimal tenderness to palpation primarily in the right upper quadrant., nondistended. No guarding. No peritoneal signs. No rebound tenderness. EXT: Normal range of motion, no obvious deformity SKIN: No rashes or lesions observed on exposed skin. NEURO: Alert and oriented 4. (Vinh Barone) Course Vital Signs 10/03/22 10/03/22 16:37 23:12 Temperature 98.4 F Pulse Rate 100 81 Respiratory 20 16 Rate Blood Pressure 155/98 131/78 O2 Sat by Pulse 99 97 Oximetry Medical Decision Making - Lab Data Result diagrams: 10/03/22 21:43 10/03/22 21:43 <Vinh Barone - Last Filed: 10/04/22 06:13> - Medical Decision Making Was pt. sent in by a medical professional or institution (ROBI Gutierrez, ADMINISTRATIVE RECEPTIONIST, urgent care, hospital, or penitentiary...) When possible be specific @ -No Did you speak to anyone other than the patient for history (EMS, parent, family, police, friend...)? What history was obtained from this source @ -No Did you review nursing and triage notes (agree or disagree)? Why? @ -I reviewed and agree with nursing and triage notes Were old charts reviewed (outside hosp., previous admission, EMS record, old EKG, old radiological studies, urgent care reports/EKG's, penitentiary records)? Report findings @ -No old charts were reviewed Differential Diagnosis (chest pain, altered mental status, abdominal pain women, abdominal pain men, vaginal bleeding, weakness, fever, dyspnea, syncope, headache, dizziness, GI bleed, back pain, seizure, CVA, palpatations, mental health, musculoskeletal)? @ -Differential Abdominal Pain Women: Appendicitis, Cholecystitis, diverticulosis, ischemic bowel, pancreatitis, hepatitis, UTI, gastroenteritis, AAA, incarcerated hernia, bowel obstruction, constipation, inflammatory bowel, hepatitis, peptic ulcer disease, splenic infar ction, perforated viscus, vulvitis, ovarian torsion, PID, kidney stone, placenta abruption, this is not meant to be an all-inclusive list EKG interpreted by me (3pts min.). @ -None done X-rays interpreted by me (1pt min.). @ -None done CT interpreted by me (1pt min.). @ -None done U/S interpreted by me (1pt. min.). @ -Ultrasound reveals a gallstone but no evidence of cholecystitis per radiology What testing was considered but not performed or refused? (CT, X-rays, U/S, labs)? Why? @ -None What meds were considered but not given or refused? Why? @ -None Did you discuss the management of the patient with other professionals (professionals i.e. , PA, ADMINISTRATIVE RECEPTIONIST, lab, RT, psych nurse, nursing home social worker, otr tanker truck driver, teacher, police officer booking, briefcase sewer)? Give summary @ -No Was smoking cessation discussed for >3mins.? @ -No Was critical care preformed (if so, how long)? @ -No Were there social determinants of health that impacted care today? How? (Homelessness, low income, unemployed, alcoholism, drug addiction, transportation, low edu. Level, literacy, decrease access to med. care, assisted, rehab)? @ -No Was there de-escalation of care discussed even if they declined (Discuss DNR or withdrawal of care, Hospice)? DNR status @ -No What co-morbidities impacted this encounter? (DM, HTN, Smoking, COPD, CAD, Cancer, CVA, ARF, Chemo, Hep., AIDS, mental health diagnosis, sleep apnea, morbid obesity)? @ -None Was patient admitted / discharged? Hospital course, mention meds given and route, prescriptions, significant lab abnormalities, going to OR and other pertinent info. @ -I evaluated patient when she was placed in a TPA after workup was completed. Vital signs within acceptable limits. Labs are all within acceptable limits. No evidence of hepatobiliary disease at this time. The latter shows a gallstone but no evidence of cholecystitis. She is resting comfortably at this time in her chair. We did discuss her workup. I believe she is likely experiencing biliary colic. She is due to follow up with the surgeon outpatient Dr. Larsen next month and recommended she continue with this appointment. She may require outpatient surgical evaluation. She is not requiring admission at this time. However we did discuss strict return precautions. She was in agreement with this plan. I will provide the patient with a prescription for famotidine, Zofran ODT. I instructed the patient to follow up with their PCP in the next 1-3 days. I explained that the patient should return to the emergency department if they experience any worsening symptoms. Strict return precautions were discussed with the patient. The patient expressed understanding of these instructions. I answered all questions that the patient had. The patient was discharged home in good condition with their prescriptions and follow up information. Undiagnosed new problem with uncertain prognosis? @ -No Drug Therapy requiring intensive monitoring for toxicity (Heparin, Nitro, Insulin, Cardizem)? @ -No Were any procedures done? @ -No Diagnosis/symptom? @ -Biliary colic Acute, or Chronic, or Acute on Chronic? @ -Acute on chronic Uncomplicated (without systemic symptoms) or Complicated (systemic symptoms)? @ -Complicated Side effects of treatment? @ -No Exacerbation, Progression, or Severe Exacerbation? @ -Exacerbation Poses a threat to life or bodily function? How? (Chest pain, [place], [place], pneumonia, PE, COPD, DKA, ARF, appy, cholecystitis, CVA, Diverticulitis, Homicidal, Suicidal, threat to staff... and all critical care pts) @ -No (Vinh Barone) - Lab Data Lab Results 10/03/22 10/03/22 Range/Units 21:43 21:43 WBC 9.6 (3.8-10.6) k/uL RBC 4.89 (3.80-5.40) m/uL Hgb 14.9 (11.4-16.0) gm/dL Hct 43.9 (34.0-46.0) % MCV 89.8 (80.0-100.0) fL MCH 30.6 (25.0-35.0) pg MCHC 34.0 (31.0-37.0) g/dL RDW 12.7 (11.5-15.5) % Plt Count 350 (150-450) k/uL MPV 7.9 Neutrophils % 66 % Lymphocytes % 26 % Monocytes % 5 % Eosinophils % 1 % Basophils % 1 % Neutrophils # 6.3 (1.3-7.7) k/uL Lymphocytes # 2.5 (1.0-4.8) k/uL Monocytes # 0.5 (0-1.0) k/uL Eosinophils # 0.1 (0-0.7) k/uL Basophils # 0.0 (0-0.2) k/uL Sodium 140 (137-145) mmol/L Potassium 3.8 (3.5-5.1) mmol/L Chloride 109 H (98-107) mmol/L Carbon Dioxide 20 L (22-30) mmol/L Anion Gap 11 mmol/L BUN 10 (7-17) mg/dL Creatinine 0.65 (0.52-1.04) mg/dL Est GFR (CKD-EPI)AfAm >90 (>60 ml/min/1.73 sqM) Est GFR (CKD-EPI)NonAf >90 (>60 ml/min/1.73 sqM) Glucose 90 (74-99) mg/dL Calcium 9.5 (8.4-10.2) mg/dL Total Bilirubin 0.5 (0.2-1.3) mg/dL AST 18 (14-36) U/L ALT 20 (4-34) U/L Alkaline Phosphatase 100 (38-126) U/L Total Protein 7.9 (6.3-8.2) g/dL Albumin 4.6 (3.5-5.0) g/dL Amylase 54 (30-110) U/L Lipase 82 (23-300) U/L Disposition <Kody Rudolph - Last Filed: 10/03/22 18:58> Is patient prescribed a controlled substance at d/c from ED?: No Time of Disposition: 22:52 <Vinh Barone - Last Filed: 10/04/22 06:13> Clinical Impression: Biliary colic Disposition: HOME SELF-CARE Condition: Good Instructions (If sedation given, give patient instructions): Biliary Colic (ED), Abdominal Pain (ED) Prescriptions: Famotidine [Pepcid] 20 mg PO DAILY 14 Days #14 tablet Ondansetron Odt [Zofran Odt] 4 mg PO Q8HR PRN 3 Days #9 tab PRN Reason: Nausea Referrals: Aric Cleary DO [Primary Care Provider] - 1-2 days
--- NOTE | 2022-10-03 20:33 | US ---
EXAMINATION TYPE: US gallbladder DATE OF EXAM: 10/03/2022 COMPARISON: 09/16/22 CLINICAL INDICATION: Female, 32 years old with history of RUQ pain; RUQ pain. Hx of gallstone. Pt not NPO TECHNIQUE: Multiple sonographic images of the right upper quadrant are obtained. Slightly limited due to bowel gas FINDINGS: EXAM MEASUREMENTS: Liver Length: 13.7 cm Gallbladder Wall: 0.26 cm CBD: 0.21 cm Right Kidney: 11.0 x 4.8 x 5.0 cm COMMERCIAL PAINTER NOTES: Pancreas: Parts visualized appear wnl Liver: Within normal limits. Gallbladder: Single gallstone visualized measuring 0.9cm Evidence for sonographic Ledezma's sign: No CBD: Within normal limits for size. Right Kidney: No hydronephrosis or masses seen IMPRESSION: Cholelithiasis without sonographic evidence to suggest acute cholecystitis.
[2022-10-03 22:11] LABS: ALT 20 U/L (4-34); AST 18 U/L (14-36); African American GFR (CKD) >90 (>60 ml/min/1.73 sqM); Albumin 4.6 g/dL (3.5-5.0); Alkaline Phosphatase 100 U/L (38-126); Amylase 54 U/L (30-110); Anion Gap 11 mmol/L; Blood Urea Nitrogen 10 mg/dL (7-17); Calcium 9.5 mg/dL (8.4-10.2); Carbon Dioxide 20 mmol/L (22-30); Chloride 109 mmol/L (98-107); Glucose 90 mg/dL (74-99); Lipase 82 U/L (23-300); Non-African American GFR(CKD) >90 (>60 ml/min/1.73 sqM); Potassium 3.8 mmol/L (3.5-5.1); Sodium 140 mmol/L (137-145); Total Bilirubin 0.5 mg/dL (0.2-1.3); Total Protein 7.9 g/dL (6.3-8.2)
[2022-10-03 22:12] LABS: Basophils % (A) 1 %; Eosinophils # (A) 0.1 k/uL (0-0.7); Eosinophils % (A) 1 %; HCT 43.9 % (34.0-46.0); HGB 14.9 gm/dL (11.4-16.0); Lymphocytes # (A) 2.5 k/uL (1.0-4.8); Lymphocytes % (A) 26 %; MCH 30.6 pg (25.0-35.0); MCV 89.8 fL (80.0-100.0); Mean Platelet Volume 7.9; Monocytes # (A) 0.5 k/uL (0-1.0); Monocytes % (A) 5 %; Neutrophils # (A) 6.3 k/uL (1.3-7.7); Neutrophils % (A) 66 %; Platelet Count 350 k/uL (150-450); RBC 4.89 m/uL (3.80-5.40); RDW 12.7 % (11.5-15.5); WBC 9.6 k/uL (3.8-10.6)
[2022-10-03] MEDS ORDERED: HYDROcodone/APAP 5-325MG 1 EACH TAB PO STA (22:54)
[2022-10-03] MEDS ORDERED: ONDANSETRON ODT 4 MG TAB PO STA (22:54)
[2022-10-03] MEDS ORDERED: MAG HYDROX/AL HYDROX/SIMETH 30 ML, HYOSCYAMINE ELIXIR 10 ML, LIDOCAINE 2% GLYDO JELLY 1... PO STA ×3 (22:54)
[2022-10-03] MEDS ORDERED: ONDANSETRON 4 MG ODT STARTER PACK 2 TAB BTL PO STA (22:55)
[2022-10-03] MEDS ORDERED: ACET/COD 300 MG/30 MG STARTER PACK 6 TAB BTL PO STA (22:55)
[2022-10-03 23:13] VITALS: BP 131/78; PULSE 81; RESP 16
== END 2022-10-03 23:14 | disposition home or self-care (01) ==
LOC: EC 16:31
DX: K80.50 Calculus of bile duct without cholangitis or cholecystitis without obstruction (principal); F41.9 Anxiety disorder, unspecified; F32.A Depression, unspecified; Z88.2 Allergy status to sulfonamides; Z79.899 Other long term (current) drug therapy
CPT/HCPCS: 36415; 80053; 82150; 83690; 85025; 76705; 99284; S0119